=== PATIENT | female | born 1970 | race Caucasian/White ===

== ENCOUNTER 2019-02-19 17:43 | Emergency (ER) | payer OTHER ==
[~2019-02-19] VITALS: Ht 160 cm; Wt 77.3 kg
[2019-02-19 17:44] VITALS: BP 151/100
[2019-02-19] MEDS ORDERED: CefTRIAXone SODIUM 1 GM/VIAL IM ONE (19:45)
[2019-02-19] MEDS ORDERED: AZITHROMYCIN 250 MG TABLET PO ONE (19:45)
[2019-02-19] MEDS ORDERED: LIDOCAINE/PF 1% 2 ML VIAL IM ONE (19:45)
== END 2019-02-19 19:56 | disposition home or self-care (01) ==
LOC: EMS 17:44
DX: N89.8 Other specified noninflammatory disorders of vagina (principal); A64 Unspecified sexually transmitted disease; Z87.891 Personal history of nicotine dependence
CPT/HCPCS: 96372; 99283; J0696; J3490

== ENCOUNTER 2019-06-06 21:12 | Emergency (ER) | payer OTHER ==
[~2019-06-06] VITALS: Ht 170.2 cm; Wt 104.1 kg
[2019-06-06 22:22] VITALS: BP 127/78
== END 2019-06-06 22:24 | disposition home or self-care (01) ==
LOC: EMS 21:14
DX: T24.012A Burn of unspecified degree of left thigh, initial encounter (principal); L08.9 Local infection of the skin and subcutaneous tissue, unspecified; R03.0 Elevated blood-pressure reading, without diagnosis of hypertension; Z87.891 Personal history of nicotine dependence; Z90.89 Acquired absence of other organs; X08.8XXA Exposure to other specified smoke, fire and flames, initial encounter; Y93.89 Activity, other specified; Y92.89 Other specified places as the place of occurrence of the external cause; Y99.8 Other external cause status

== ENCOUNTER 2021-03-06 03:15 | Emergency (ER) | payer OTHER ==
[~2021-03-06] VITALS: Ht 170.2 cm; Wt 100.5 kg
[2021-03-06 03:22] VITALS: BP 149/83
[2021-03-06] MEDS ORDERED: PHENAZOPYRIDINE HCL 100 MG TABLET PO ONE (05:00)
[2021-03-06] MEDS ORDERED: NITROFURANTOIN/NITROFURAN MAC 100 MG CAPSULE [MACROBID] PO ONE (05:00)
== END 2021-03-06 05:48 | disposition home or self-care (01) ==
LOC: EMS 03:16
DX: N39.0 Urinary tract infection, site not specified (principal)
CPT/HCPCS: 81002; 99283

== ENCOUNTER 2021-11-02 14:13 | Emergency (ER) | payer OTHER ==
[~2021-11-02] VITALS: Ht 170.2 cm; Wt 95.5 kg
[2021-11-02 14:20] VITALS: BP 103/68
[2021-11-02 14:41] LABS: COVID AG,FIA SOURCE NASOPHARYNGEAL
[2021-11-02] MEDS ORDERED: ACETAMINOPHEN 500 MG TABLET PO ONE (15:45)
== END 2021-11-02 21:38 | disposition home or self-care (01) ==
LOC: EMS 14:13
DX: U07.1 COVID-19 (principal); Z87.891 Personal history of nicotine dependence
CPT/HCPCS: 99283

== ENCOUNTER 2024-07-14 04:24 | Emergency (ER) | payer OTHER ==
[~2024-07-14] VITALS: Ht 170.2 cm; Wt 85.9 kg
[2024-07-14 04:31] VITALS: BP 133/77; PULSE 98; RESP 16; TEMP 98.6; O2SAT 98
[2024-07-14] MEDS: IBUPROFEN 600 MG TABLET PO ONE (04:47)
[2024-07-14] MEDS ORDERED: IBUP-1492 PO (05:28)
== END 2024-07-14 05:55 | disposition home or self-care (01) ==
LOC: EMS 04:25
DX: M20.41 Other hammer toe(s) (acquired), right foot (principal)
CPT/HCPCS: 99283

== ENCOUNTER 2024-10-12 01:08 | Emergency (ER) | payer OTHER ==
[~2024-10-12] VITALS: Ht 170.2 cm; Wt 86.4 kg
[~2024-10-12 01:08] MED LIST: IBUP-1492 PO
[2024-10-12 01:17] VITALS: TEMP 98
[2024-10-12] MEDS: TraMADol HCL 50 MG TABLET PO ONE (02:15)
[2024-10-12 03:00] VITALS: BP 135/75; PULSE 71; RESP 17; O2SAT 100
[2024-10-12] MEDS ORDERED: PRED-554 PO (03:00)
[2024-10-12] MEDS ORDERED: TRAM50TA5 PO (03:00)
== END 2024-10-12 03:20 | disposition home or self-care (01) ==
LOC: EMS 01:08
DX: M19.90 Unspecified osteoarthritis, unspecified site (principal); Z79.1 Long term (current) use of non-steroidal anti-inflammatories (NSAID); Z86.19 Personal history of other infectious and parasitic diseases; Z90.49 Acquired absence of other specified parts of digestive tract; Z87.891 Personal history of nicotine dependence
CPT/HCPCS: 99283